=== PATIENT | female | born 1975 | race African-American/Black ===

== ENCOUNTER 2020-06-03 13:55 | Observation (INO) | payer BC ==
[~2020-06-03] VITALS: Ht 157.5 cm; Wt 90.7 kg
[2020-06-03] MEDS ORDERED: SODIUM CHLORIDE 0.9% 1000ML 1,000 ML IV STA (13:57)
--- NOTE | 2020-06-03 14:13 | NUR ---
REC'D PT IN RM [address] [facility] FOR NEAR SYNCOPE. PLACED ON THE MONITOR. EKG DONE AND DR. BOWDEN TO EVAL
--- NOTE | 2020-06-03 14:43 | Diagnostic Imaging Report ---
TECHNIQUE: Frontal view of the chest. INDICATION: ^NEAR-SYNCOPE ^[id number] ^1412 COMPARISON: None DISCUSSION: Limited evaluation due to portable technique. Lines and hardware: Overlying EKG leads are noted. Heart and mediastinum: Cardia mediastinal silhouette, pulmonary vascularity and mediastinal contours are within normal limits. Trachea projects midline. Lungs and pleura: No focal airspace consolidation. No pleural effusion. No pneumothorax. Soft tissues and bones: No acute abnormality. IMPRESSION: Negative for acute intrathoracic process. Signed by: Mario Harvey MD on 06/03/2020 2:40 PM
[2020-06-03 14:55] LABS: BASOPHILS % 0.5 % (0.0-1.0); EOSINOPHILS # (AUTO) 0.2 (0.0-0.4); EOSINOPHILS % 2.1 % (0.0-6.0); HEMATOCRIT 39.9 % (34.2-44.1); HEMOGLOBIN 12.8 g/dL (12.0-16.0); LYMPHOCYTES # (AUTO) 2.7 (1.0-3.2); LYMPHOCYTES % 34.9 % (18.0-39.1); MEAN CORPUSCULAR HEMOGLOBIN 25.4 pg (28-32); MEAN CORPUSCULAR HGB CONC 32.1 g/dL (31-35); MEAN CORPUSCULAR VOLUME 79.3 fL (81-99); MONOCYTES # (AUTO) 0.4 (0.2-0.8); MONOCYTES % 5.1 % (4.4-11.3); NEUTROPHILS # (AUTO) 4.4 (2.1-6.9); PLATELET COUNT 260 x10e3/uL (140-360); RED BLOOD COUNT 5.03 x10e6/uL (3.6-5.1); RED CELL DISTRIBUTION WIDTH 15.2 % (11.7-14.4)
[2020-06-03 15:15] LABS: INR 0.9; PARTIAL THROMBOPLASTIN TIME 24.7 seconds (23.8-35.5); PROTHROMBIN TIME 12.6 seconds (11.9-14.5)
[2020-06-03 15:15] LABS: ALANINE AMINOTRANSFERASE 15 IU/L (0-55); ALBUMIN/GLOBULIN RATIO 1.2 (0.8-2.0); ALKALINE PHOSPHATASE 95 IU/L (40-150); BLOOD UREA NITROGEN 7 mg/dL (7-26); BUN/CREATININE RATIO 9 (6-25); CARBON DIOXIDE 20 mmol/L (22-29); CHLORIDE 106 mmol/L (98-107); CREATINE KINASE 80 IU/L (29-168); CREATININE, SERUM 0.75 mg/dL (0.57-1.11); EST GLOMERULAR FILTRATION RATE > 60 ML/MIN (60-); GLUCOSE 147 mg/dL (74-118); MAGNESIUM 1.7 MG/DL (1.3-2.1); SODIUM 138 mmol/L (136-145)
--- NOTE | 2020-06-03 15:25 | NUR ---
urine collected and sent to the lab
[2020-06-03 15:34] LABS: THYROID STIMULATING HORMONE 0.685 uIU/mL (0.350-4.940)
[2020-06-03 15:45] LABS: CLARITY,URINE SL CLOUDY (CLEAR); COLOR,URINE YELLOW (YELLOW)
[2020-06-03 15:46] LABS: BILIRUBIN,URINE NEGATIVE (NEGATIVE); KETONES,URINE NEGATIVE (NEGATIVE); LEUKOCYTE ESTERASE ,URINE NEGATIVE (NEGATIVE); NITRITE,URINE NEGATIVE (NEGATIVE); PROTEIN,URINE DIPSTICK NEGATIVE (NEGATIVE); URINE UROBILINOGEN 1 mg/dL (0.2 - 1)
[2020-06-03 15:47] LABS: AMPHETAMINES SCREEN,URINE NEGATIVE (NEGATIVE); BENZODIAZEPINES SCREEN,URINE NEGATIVE (NEGATIVE); PHENCYCLIDINE SCREEN,URINE NEGATIVE (NEGATIVE)
[2020-06-03 15:56] LABS: BACTERIA,URINE RARE /HPF; EPITHELIAL CELLS,URINE MODERATE /LPF; RBC,URINE 0-5 /HPF (0-5); WBC,URINE (MAN) 0-5 /HPF (0-5)
[2020-06-03 15:57] LABS: MUCUS,URINE FEW (RARE)
--- OUTSIDE RECORDS SUMMARY | 2020-06-03 15:59 | XMS REPORT | Continuity of Care Document ---
Author Author [facility] t Organization [facility] Address [address] [place] [id number] Phone Unavailable Care Team Providers Care Service Director Name Role Phone Reba BOWDEN Attphys Unavailable Problems This patient has no known problems. Allergies, Adverse Reactions, Alerts This patient has no known allergies or adverse reactions. Medications This patient has no known medications. Procedures This patient has no known procedures. Results Test Description Test Time Test Comments Results Result Comments Source CHEST SINGLE (PORTABLE) 2020-06-03 14:39:00 [place] [address] Patient Name: ELENA CHOI MR #: [id number] : 1975 Age/Sex: 44/F Req #: [id number] Adm Physician: Ordered by: WENDIE BOWDEN MD Report #: [id number] Location: ER Room/Bed: Procedure: [id number] DX/CHEST SINGLE (PORTABLE) Exam Date: 06/03/20 Exam Time: 1411 REPORT STATUS: Signed TECHNIQUE: Frontal view of the chest. INDICATION: NEAR-SYNCOPE [id number] COMPARISON: None DISCUSSION: Limited evaluation due to portable technique. Lines and hardware: Overlying EKG leads are noted. Heart and mediastinum: Cardia mediastinal silhouette, pulmonary vascularity and mediastinal contours are within normal limits. Trachea projects midline. Lungs and pleura: No focal airspace consolidation. No pleural effusion. No pneumothorax. Soft tissues and bones: No acute abnormality. IMPRESSION: Negative for acute intrathoracic process. Signed by: Earl Harvey MD on 06/03/2020 2:40 PM Dictated By: EARL HARVEY MD 1440 Transcribed By: ROVERTO on 06/03/20 1440 COPY TO: WENDIE BOWDEN MD
--- NOTE | 2020-06-03 16:10 | Emergency Department Note ---
History of Present Illnes History of Present Illness Chief Complaint: General Medicine Complaints History of Present Illness This is a 44 year old female PT WAS AT WORK AND WENT TO HER CAR IN AIR CONDITIONING TO TAKE A BREAK AND FELT IF SHE WERE GOING TO PASS OUT, LIGHTHEADED, NO PALPITATIONS. PT NOW AAOX4. VSS, HOWEVER; EMS REPORTS PT WITH RUNS OF "3 PVC'S IN A ROW" AND 15-30 PVC'S A MINUTE. SHE REPORTS SIMILAR EPISODES IN PAST 2 WEEKS, SOMETIMES WITH EXERCISE, NO SYNCOPE, NO FALL, NO CP. 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 Any updates have been documented here. Past Medical History Recent Fever: No Clinical Suspicion of Infectio: No New/Unexplained Change in Ment: No Past Medical History: Hypertension Other Medical History: OBSITY Social History Smoking Cessation: Never Smoker Counseling Performed: No Alcohol Use: None Any Illegal Drug Use: No TB Exposure/Symptoms: No Physically hurt or threatened: No Family History Family history of heart diseas: No Other Any Pre-Existing Lines (PICC,: No Review of Systems Review of Systems Constitutional: Reports as per HPI, Reports weakness EENTM: Reports no symptoms Cardiovascular: Reports syncope (ONLY NEAR-SYNCOPE) Respiratory: Reports no symptoms Gastrointestinal: Reports no symptoms Genitourinary: Reports no symptoms Musculoskeletal: Reports no symptoms Integumentary: Reports no symptoms Neurological: Reports no symptoms Psychological: Reports no symptoms Endocrine: Reports no symptoms Hematological/Lymphatic: Reports no symptoms Physical Exam Related Data Allergies: Coded Allergies: ibuprofen (Verified Allergy, Unknown, 06/03/20) Triage Vital Signs Vital Signs Date Time Temp Pulse Resp B/P (MAP) Pulse Ox O2 Delivery O2 Flow Rate FiO2 06/03/20 13:57 98.5 101 18 158/100 99 Room Air Vital signs reviewed: Yes Physical Exam CONSTITUTIONAL Constitutional: Present well-developed, Present well-nourished, Present obese HENT HENT: Present normocephalic, Present atraumatic, Present oropharynx clear/moist, Present nose normal HENT L/R: Present left ext ear normal, Present right ext ear normal EYES Eyes: Reports PERRL, Reports conjunctivae normal NECK Neck: Present ROM normal; Absent carotid bruit PULMONARY Pulmonary: Present effort normal, Present breath sounds normal CARDIOVASCULAR Cardiovascular: Present regular rhythm, Present heart sounds normal, Present capillary refill normal, Present normal rate; Absent murmur GASTROINTESTINAL Abdominal: Present soft, Present nontender, Present bowel sounds normal GENITOURINARY Genitourinary: Present exam deferred SKIN Skin: Present warm, Present dry MUSCULOSKELETAL Musculoskeletal: Present ROM normal NEUROLOGICAL Neurological: Present alert, Present oriented x 3, Present no gross motor or sensory deficits PSYCHOLOGICAL Psychological: Present mood/affect normal, Present judgement normal Results Laboratory Result Diagram: 06/03/20 1440 06/03/20 1440 Laboratory Laboratory Tests Test 06/03/20 15:08 06/03/20 14:50 06/03/20 14:40 Urine Color Yellow (YELLOW) Urine Clarity Sl cloudy (CLEAR) Urine pH 7 (5 - 7) Urine Specific [place] 1.025 (1.010-1.025) Urine Protein Negative (NEGATIVE) Urine Glucose (UA) Negative (NEGATIVE) Urine Ketones Negative (NEGATIVE) Urine Blood Negative (NEGATIVE) Urine Nitrite Negative (NEGATIVE) Urine Bilirubin Negative (NEGATIVE) Urine Urobilinogen 1 mg/dL (0.2 - 1) Urine Leukocyte Esterase Negative (NEGATIVE) Urine RBC 0-5 /HPF (0-5) Urine WBC 0-5 /HPF (0-5) Urine Epithelial Cells Moderate /LPF (NONE) Urine Bacteria Rare /HPF (NONE) Urine Mucus Few (RARE) Urine Opiates Screen Negative (NEGATIVE) Urine Methadone Screen Negative (NEGATIVE) Urine Barbiturates Screen Negative (NEGATIVE) Urine Phencyclidine Screen Negative (NEGATIVE) Urine Amphetamines Screen Negative (NEGATIVE) Urine Methamphetamines Screen Negative (NEGATIVE) Urine Benzodiazepines Screen Negative (NEGATIVE) Urine Cocaine Screen Negative (NEGATIVE) Urine Cannabinoids Screen Negative (NEGATIVE) Prothrombin Time 12.6 seconds (11.9-14.5) Prothromb Time International Ratio 0.90 Activated Partial Thromboplast Time 24.7 seconds (23.8-35.5) D-Dimer Quantitative (PE/DVT) 0.34 ug/mLFEU (0.00-0.45) White Blood Count 7.65 x10e3/uL (4.8-10.8) Red Blood Count 5.03 x10e6/uL (3.6-5.1) Hemoglobin 12.8 g/dL (12.0-16.0) Hematocrit 39.9 % (34.2-44.1) Mean Corpuscular Volume 79.3 fL (81-99) Mean Corpuscular Hemoglobin 25.4 pg (28-32) Mean Corpuscular Hemoglobin Concent 32.1 g/dL (31-35) Red Cell Distribution Width 15.2 % (11.7-14.4) Platelet Count 260 x10e3/uL (140-360) Neutrophils (%) (Auto) 57.0 % (38.7-80.0) Lymphocytes (%) (Auto) 34.9 % (18.0-39.1) Monocytes (%) (Auto) 5.1 % (4.4-11.3) Eosinophils (%) (Auto) 2.1 % (0.0-6.0) Basophils (%) (Auto) 0.5 % (0.0-1.0) Neutrophils # (Auto) 4.4 (2.1-6.9) Lymphocytes # (Auto) 2.7 (1.0-3.2) Monocytes # (Auto) 0.4 (0.2-0.8) Eosinophils # (Auto) 0.2 (0.0-0.4) Basophils # (Auto) 0.0 (0.0-0.1) Absolute Immature Granulocyte (auto 0.03 x10e3/uL (0-0.1) Sodium Level 138 mmol/L (136-145) Potassium Level 4.0 mmol/L (3.5-5.1) Chloride Level 106 mmol/L (98-107) Carbon Dioxide Level 20 mmol/L (22-29) Anion Gap 16.0 mmol/L (8-16) Blood Urea Nitrogen 7 mg/dL (7-26) Creatinine 0.75 mg/dL (0.57-1.11) Estimat Glomerular Filtration Rate > 60 ML/MIN (60-) BUN/Creatinine Ratio 9 (6-25) Glucose Level 147 mg/dL (74-118) Calcium Level 9.0 mg/dL (8.4-10.2) Magnesium Level 1.7 MG/DL (1.3-2.1) Total Bilirubin 0.3 mg/dL (0.2-1.2) Aspartate Amino Transf (AST/SGOT) 21 IU/L (5-34) Alanine Aminotransferase (ALT/SGPT) 15 IU/L (0-55) Alkaline Phosphatase 95 IU/L (40-150) Creatine Kinase 80 IU/L (29-168) Creatine Kinase MB 1.00 ng/mL (0-5.0) Troponin I 0.006 ng/mL (0-0.300) B-Type Natriuretic Peptide < 10.0 pg/mL (0-100) Total Protein 7.4 g/dL (6.5-8.1) Albumin 4.0 g/dL (3.5-5.0) Globulin 3.4 g/dL (2.3-3.5) Albumin/Globulin Ratio 1.2 (0.8-2.0) Thyroid Stimulating Hormone (TSH) 0.685 uIU/mL (0.350-4.940) Human Chorionic Gonadotropin, Qual Negative (NEGATIVE) Lab results reviewed: Yes Imaging Imaging results reviewed: Yes Procedures 12 Lead ECG Interpretation ECG Interpretation : ECG: ECG 1 Date: Jun 03, 2020 Time: 14:03 Rhythm: sinus rhythm Rate: normal BPM: 89 QRS axis: normal ST segments normal: Yes T waves normal: Yes Clinical Impression: normal ECG Assessment & Plan Medical Decision Making MDM NEAR-SYNCOPE WITH FREQ PVC'S, REPORTED 3 BEAT RUN OF NSVT PER EMS (THEY WERE UNABLE TO PRINT STRIP) - CHECK CBC, CHEM'S, ECG, CARDIACS, D-DIMER, TSH, MAGNESIUM - R/O ANEMIA, STEMI/NSTEMI, DYSRHYTHMIA, PULM EMBOLISM, ELECTROLYTE ABNL Reassessment Reassessment ADMIT 23HR OBS - SPOKE WITH ON-CALL DR ROBERTSON AND HE WANTED CONSULT TO DR Reba CERVANTES (I ALSO SPOKE WITH HIM, WANTS ECHO) Assessment & Plan Final Impression: (1) Near syncope (2) Frequent PVCs Depart Disposition: ADMITTED Last Vital Signs Date Time Temp Pulse Resp B/P (MAP) Pulse Ox O2 Delivery O2 Flow Rate FiO2 06/03/20 15:43 86 17 137/90 100 Room Air 06/03/20 14:16 98.5 Medications in the ED Sodium Chloride 1,000 ml @ 0 mls/hr Q0M STAT IV Last administered on 06/03/20at 15:03; Admin Dose 999 MLS/HR; Start 06/03/20 at 13:57; Stop 06/03/20 at 14:00; Status DC WENDIE BOWDEN MD Jun 03, 2020 16:10
[2020-06-03] MEDS: FAMOTIDINE 20 MG/2 ML VIAL IV SCH (16:22)
--- NOTE | 2020-06-03 16:25 | NUR ---
pt to contact her daughter re home medications
[2020-06-03] MEDS ORDERED: METOPROLOL TART25 MG PO (17:22)
[2020-06-03 18:05] VITALS: BP 141/89
[2020-06-03 18:06] VITALS: BP 141/89
[2020-06-03 18:07] VITALS: BP 141/89
[2020-06-03 20:00] VITALS: BP 131/73
[2020-06-03] MEDS: METOPROLOL TARTRATE 25 MG TAB PO SCH (20:00)
--- NOTE | 2020-06-03 20:54 | Consultation ---
DATE OF CONSULTATION: 06/03/2020 Cardiac Consultation REASON FOR CONSULTATION: Near-syncope, PVCs. HISTORY OF PRESENT ILLNESS: A 44-year-old lady, who is known with hypertension since 2017, obesity, low back pain, very active, for the last few weeks twice when she was exercising she felt at peak exercise, her heart bouncing and she got a little bit dizzy. Today, she was working and then she went to her car and while she was there she felt near syncope. EMS was called. They noted one 3-beat run of ventricular tachycardia and noted frequent PVCs per minute. However, since arrival to ER, no more arrhythmias are noted. There is no angina. There is no orthopnea. There is no paroxysmal nocturnal dyspnea. There is no syncope or presyncope. The patient appears to be very physically active and she is still active without any angina or any symptoms. REVIEW OF SYSTEMS: GENERAL: No fever, no chills. HEENT: No vision problem. No hearing problem. PULMONARY: No recent travel. No pleuritic chest pain. CARDIAC: As per history and physical. GI: No hematemesis. No melena. : No hematuria. No dysuria. MUSCULOSKELETAL: Low back pain. She is supposed to have MRI shortly. HEMATOLOGY: No easy bruising or bleeding. SOCIAL HISTORY: She is divorcee. She is nonsmoker. She is social alcohol drinker. She works in [employer]. PAST MEDICAL HISTORY: 1. Hypertension. 2. Obesity. 3. Low back problem. 4. Fibroid tumor. 5. The patient does have IUD. She is not . FAMILY HISTORY: Father and mother are alive and they are healthy, one with hypertension and second with diabetes mellitus. No premature coronary artery disease. There is no family history of premature coronary artery disease or sudden cardiac in young individuals. Siblings none. She is only child. She does have one daughter at age 14. PHYSICAL EXAMINATION: VITAL SIGNS: Height of 5 feet 2 inches, weight of 200 pounds, blood pressure 120/80, heart rate of 80, respiratory rate of 18. HEENT: Pupils are reactive. NECK: No elevation of jugular venous pulsation. No bruit. CHEST: Clear to auscultation and percussion. HEART: PMI 5th left intercostal space. Normal first and second heart sound. ABDOMEN: Soft with good bowel sounds. EXTREMITIES: No cyanosis, no clubbing, no edema. No signs of deep venous thrombosis. NEUROLOGIC: Awake, alert, and oriented. No motor or sensory deficit. Nonfocal. LABORATORY DATA: EKG; normal sinus rhythm. Chest x-ray by report showed no major abnormality. White blood cell count of 7.7, hemoglobin 12.6, hematocrit 39%, and platelet count of 206,000, BNP is normal. First set of cardiac enzymes are normal. Electrolytes are normal. IMPRESSION AND PLAN: 1. Dizziness with near syncope, multifactorial. 2. The patient mentioned in the last few weeks twice while she was exercising, she felt dizzy because maybe she cooled off quickly. 3. Hypertension. 4. Obesity. 5. Low back pain. 6. No history of premature coronary artery disease or sudden cardiac . Cardiac workup for syncope will be done. This will include an echocardiogram keeping patient on telemetry. A cardiac stress test will be quite beneficial. Pending on the results of the initial investigation, further steps to be done. Of course, the patient advised to keep follow up with her PCP if all tests are negative and to re-evaluate her condition for further testing if this happening or maybe to see EP also that is another probability or to have loop recorder, which is also another probability. All this options are discussed and explained during the visit with discussion and explanation. MD SATINDER Kelly/LISA /[id number]
[2020-06-03 21:00] VITALS: BP 131/73
--- NOTE | 2020-06-03 23:04 | History and Physical ---
CHIEF COMPLAINT: Feeling of "I was about to pass out." HISTORY OF PRESENT ILLNESS: Ms. Barker is a 44-year-old female. 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 She was at her break from work sitting in her car and felt that she will pass out. EMS was called and they found that possibly there was runs of ventricular tachycardia. She was brought into the emergency room. She denies any chest pain, shortness of breath. She has history of hypertension. She uses metoprolol and hydrochlorothiazide at home. She denies any nausea, vomiting, or diarrhea. REVIEW OF SYSTEMS: GENERAL: Denies any fever or chills. HEAD: Denies any head trauma. ENT: Denies any earache. CVS: Denies any chest pain. RESPIRATORY: Denies any shortness of breath. The rest is negative except as in HPI. PAST MEDICAL HISTORY: Hypertension. PAST SURGICAL HISTORY: Unknown family and social history. She does not smoke. Does not drink. PHYSICAL EXAMINATION: VITAL SIGNS: Temperature 97.4, pulse of 82, blood pressure 141/89, respiratory rate of 18, O2 saturation 100% on room air. HEENT: Head is atraumatic and normocephalic. NECK: Supple. CHEST: Clear to auscultation bilaterally. No wheezing. HEART: S1, S2. Audible. ABDOMEN: Soft. EXTREMITIES: No pedal edema. NEUROLOGIC: Awake and alert. LABORATORY DATA: Reviewed. Chest x-ray reviewed. ASSESSMENT AND PLAN: A 44-year-old female with presyncope, possibly runs of ventricular tachycardia. Cardiology has been consulted. We will follow the recommendation. Once cleared by Cardiology, the patient can be discharged home, resume home medication. MD NIC Yun/LISA /[id number]
[2020-06-04] VITALS: BP 116/79
[2020-06-04 01:21] LABS: CREATINE KINASE MB 0.5 ng/mL (0-5.0)
[2020-06-04 04:00] VITALS: BP 129/72
[2020-06-04 06:27] LABS: BASOPHILS # (AUTO) 0.1 (0.0-0.1); BASOPHILS % 0.8 % (0.0-1.0); EOSINOPHILS # (AUTO) 0.2 (0.0-0.4); EOSINOPHILS % 2.5 % (0.0-6.0); HEMATOCRIT 37.4 % (34.2-44.1); HEMOGLOBIN 11.7 g/dL (12.0-16.0); LYMPHOCYTES # (AUTO) 3.2 (1.0-3.2); LYMPHOCYTES % 41.4 % (18.0-39.1); MEAN CORPUSCULAR HGB CONC 31.3 g/dL (31-35); MEAN CORPUSCULAR VOLUME 79.9 fL (81-99); MONOCYTES # (AUTO) 0.5 (0.2-0.8); NEUTROPHILS # (AUTO) 3.8 (2.1-6.9); NEUTROPHILS % 48.9 % (38.7-80.0); PLATELET COUNT 258 x10e3/uL (140-360); RED BLOOD COUNT 4.68 x10e6/uL (3.6-5.1); RED CELL DISTRIBUTION WIDTH 15.3 % (11.7-14.4)
[2020-06-04] MEDS: FAMOTIDINE 20 MG/2 ML VIAL IV SCH (06:41)
[2020-06-04 06:45] LABS: ALANINE AMINOTRANSFERASE 13 IU/L (0-55); ALBUMIN 3.6 g/dL (3.5-5.0); ALBUMIN/GLOBULIN RATIO 1.3 (0.8-2.0); ALKALINE PHOSPHATASE 75 IU/L (40-150); ANION GAP 11.9 mmol/L (8-16); BLOOD UREA NITROGEN 8 mg/dL (7-26); BUN/CREATININE RATIO 10 (6-25); CALCIUM 8.8 mg/dL (8.4-10.2); CARBON DIOXIDE 22 mmol/L (22-29); CHLORIDE 108 mmol/L (98-107); CHOL/HDL RATIO 6.2 (3.0-3.6); CHOLESTEROL 187 MD/DL (0-199); CREATININE, SERUM 0.79 mg/dL (0.57-1.11); EST GLOMERULAR FILTRATION RATE > 60 ML/MIN (60-); GLUCOSE 104 mg/dL (74-118); HDL CHOLESTEROL 30 MG/DL (40-60); LDL CHOLESTEROL 133 MG/DL (60-130); POTASSIUM 3.9 mmol/L (3.5-5.1); SODIUM 138 mmol/L (136-145); TRIGLYCERIDES 119 MG/DL (0-149)
[2020-06-04 06:59] LABS: CREATINE KINASE 62 IU/L (29-168)
[2020-06-04 08:15] VITALS: BP 121/90
[2020-06-04 09:00] VITALS: BP 121/90
--- NOTE | 2020-06-04 10:41 | EXERCISE STRESS TEST ---
DATE OF STUDY: 06/04/2020 10:00:00 Stress Test - Treadmill ONLY TITLE OF THE TEST: Cardiac stress test. TECHNICAL DETAILS: The protocol is a Srikanth with target heart rate at 149 per minute. RESULTS: 1. The patient exercised for a total of 7 minutes and 33 seconds. 2. Heart rate increased from 90 per minute to 152 per minute. 3. Blood pressure increased from 140/80 to 190/80. 4. No EKG changes. 5. No chest pain. 6. No PVCs at peak exercise. IMPRESSION: Negative cardiac stress test. Limitations of negative cardiac stress test are discussed and explained to the patient. MD SATINDER Kelly/JENNYL /[id number]
--- NOTE | 2020-06-04 10:58 | NUR ---
Pt went to [facility] for stress test. 0 s/s of acute distress noted at time of transfer. Dr. Waller here to see pt and states stress test is negative and pt can be discharged from his standpoint.
[2020-06-04 11:59] VITALS: BP 130/90
[2020-06-04] MEDS: METOPROLOL TARTRATE 25 MG TAB PO SCH (12:10)
--- NOTE | 2020-06-04 15:00 | Discharge Summary ---
FINAL DIAGNOSES: 1. Presyncope. 2. Hypertension. ADMISSION HISTORY AND HOSPITAL COURSE: Ms. Barker is a 44-year-old female, she presented to the emergency room with a feeling of passing out, possible few beats of VT per the chart. Cardiology evaluated the patient. Stress test was done and Dr. Waller cleared the patient for discharge. She will be discharged home to follow up with her primary care physician. MD NIC Yun/LISA /[id number]
--- NOTE | 2020-06-04 15:15 | NUR ---
Pt discharged home at this time. 0 s/s of acute distress noted. Pt verbalized understanding of all discharge instructions and follow up appointments. Denies any pain at time of discharge.
== END 2020-06-04 15:15 | disposition home or self-care (01) ==
LOC: ER 14:15 → ERHOLD 15:54 → MED/SURG3 18:07
PROVIDERS: ADMIT Internal Medicine; ATTEND Internal Medicine
DX: R55 Syncope and collapse (principal); I49.3 Ventricular premature depolarization; I10 Essential (primary) hypertension; E66.9 Obesity, unspecified; M54.5 Low back pain; Z11.59 Encounter for screening for other viral diseases; E78.5 Hyperlipidemia, unspecified; Z68.36 Body mass index [BMI] 36.0-36.9, adult
CPT/HCPCS: 36415 ×2; 71045; 80053 ×2; 80061; 80307; 81001; 82550 ×2; 82553 ×2; 83735; 83880; 84443 ×2; 84484 ×2; 84702; 85025 ×2; 85379; 85610; 85730; 93005; 93017; 93306; 99284; G0378 ×2; J7030; U0002